=== PATIENT | male | born 1940 ===

== ENCOUNTER 2016-08-26 19:28 | Emergency (ER) | payer OTHER ==
[2016-08-26 19:28] VITALS: BMI 28.7
--- NOTE | 2016-08-26 20:26 | C.PDOC ---
History Of Present Illness 76 y/o male presents to the ED with complains of urinary retention for the past 10 hours. Pt had chronic indwelling partida catheter removed this morning by Dr Denny Silver. Pt has not urinated since, dribbled small quantity in ED. Denies fever, chills, abdominal pain or any other complaints. Time Seen by Provider: 08/26/16 19:43 Chief Complaint (Nursing): Male Genitourinary History Per: Patient History/Exam Limitations: no limitations Onset/Duration Of Symptoms: Hrs Current Symptoms Are (Timing): Still Present Severity: Moderate Associated Symptoms: Urinary Symptoms. denies: Fever, Chills, Nausea, Vomiting Alleviating Factors: None Recent travel outside of the [place]: No Past Medical History Reviewed: Historical Data, Nursing Documentation, Vital Signs Vital Signs: Last Vital Signs Temp 97.7 F 08/26/16 19:34 Pulse 77 08/26/16 19:34 Resp 14 08/26/16 19:34 BP 170/79 H 08/26/16 19:34 Pulse Ox 99 08/26/16 20:29 - Medical History PMH: Benign Prostatic Hyperplasia, CAD, Diabetes, Gall Bladder Disease, HTN, Hypercholesterolemia Surgical History: Cholecystectomy, Coronary Stent - [facility] Procedures INSERT INDWELLING CATH (06/23/14) REPLACE INDWELLING CATH (08/29/14) Family History: States: Unknown Family Hx - Social History Hx Tobacco Use: No Hx Alcohol Use: No Hx Substance Use: No - Immunization History Hx Tetanus Toxoid Vaccination: No Hx Influenza Vaccination: Yes Hx Pneumococcal Vaccination: Yes Review Of Systems Except As Marked, All Systems Reviewed And Found Negative. Constitutional: Negative for: Fever, Chills Gastrointestinal: Negative for: Nausea, Vomiting, Abdominal Pain Genitourinary: Positive for: Other (urinary retention) Physical Exam - Physical Exam Appears: Non-toxic, No Acute Distress Skin: Warm, Dry, No Rash Head: Atraumatic, Normacephalic Chest: Symmetrical Cardiovascular: Rhythm Regular, No Murmur Respiratory: Normal Breath Sounds, No Rales, No Rhonchi, No Wheezing Gastrointestinal/Abdominal: Soft, Tenderness (significant suprapubic tenderness and distention), Distention, No Guarding, No Rebound Extremity: Bilateral: Atraumatic Neurological/Psych: Oriented x3, Normal Speech ED Course And Treatment O2 Sat by Pulse Oximetry: 99 (room air) Pulse Ox Interpretation: Normal Progress Note: Bladder US scan- 600cc. 2000 paged Denny Silver Reevaluation Time: 20:52 Reassessment Condition: Improved - Physician Consult Information Outcome Of Conversation: 2044: d/w Dr. Yuki Smart- ok to replace partida and leg bag and opt f/u. Medical Decision Making Medical Decision Making: recurrent urinary retention after failed void trail- partida removed this AM by Dr. Yuki Smart. Disposition Doctor Will See Patient In The: Office Counseled Patient/Family Regarding: Studies Performed, Diagnosis - Disposition Disposition: HOME/ ROUTINE Disposition Time: 20:54 Condition: GOOD - Clinical Impression Clinical Impression: Acute retention of urine - Scribe Statement The provider has reviewed the documentation as recorded by the Willy Jean-Baptiste Provider Attestation: All medical record entries made by the Feltonibsandrita were at my direction and personally dictated by me. I have reviewed the chart and agree that the record accurately reflects my personal performance of the history, physical exam, medical decision making, and the department course for this patient. I have also personally directed, reviewed, and agree with the discharge instructions and disposition.
[2016-08-26 21:10] VITALS: BP 158/70; PULSE 60; RESP 16; TEMP 98.3; O2SAT 97
== END 2016-08-26 21:26 | disposition home or self-care (01) ==
LOC: C.ER 19:28
DX: N40.1 Benign prostatic hyperplasia with lower urinary tract symptoms (principal); R33.8 Other retention of urine

== ENCOUNTER 2018-07-06 21:49 | Emergency (ER) | payer OTHER ==
[2018-07-06 21:50] VITALS: BMI 31.6
[2018-07-06 21:57] VITALS: O2SAT 98
--- NOTE | 2018-07-06 23:05 | C.PDOC ---
History Of Present Illness 78 year old male presents to the ED for evaluation of his partida. Patient reports due to an enlarged prostates he had a partida placed which stopped draining today. Patient states similar episodes in the past that resolved after the partida was changed. Patient also c/o lower abdominal pressure. Patient denies fever, chills, nausea, vomit, diarrhea, back pain. Time Seen by Provider: 07/06/18 22:04 Chief Complaint (Nursing): Male Genitourinary History Per: Patient History/Exam Limitations: no limitations Onset/Duration Of Symptoms: Days Current Symptoms Are (Timing): Still Present Quality Of Discomfort: Pressure Associated Symptoms: Urinary Symptoms. denies: Nausea, Vomiting, Diarrhea Recent travel outside of the [place]: No Additional History Per: Patient Past Medical History Reviewed: Historical Data, Nursing Documentation, Vital Signs Vital Signs: Last Vital Signs Temp 98.1 F 07/06/18 21:53 Pulse 109 H 07/06/18 21:53 Resp 20 07/06/18 21:53 BP 188/97 H 07/06/18 21:53 Pulse Ox 98 07/06/18 21:53 - Medical History PMH: Benign Prostatic Hyperplasia (partida cath), CAD, Diabetes, Gall Bladder Disease, HTN, Hypercholesterolemia Surgical History: Cholecystectomy, Coronary Stent - [facility] Procedures INSERT INDWELLING CATH (06/23/14) REPLACE INDWELLING CATH (08/29/14) Family History: States: Unknown Family Hx - Social History Hx Tobacco Use: No Hx Alcohol Use: No Hx Substance Use: No - Immunization History Hx Tetanus Toxoid Vaccination: Yes Hx Influenza Vaccination: Yes Hx Pneumococcal Vaccination: Yes Review Of Systems Except As Marked, All Systems Reviewed And Found Negative. Gastrointestinal: Positive for: Abdominal Pain Genitourinary: Positive for: Other (Urinary retention) Physical Exam - Physical Exam Additional Physical Exam Comments: Constitutional: No acute distress. Head: Normocephalic. Atraumatic. Eyes: PERRL. ENT: Moist mucous membranes. Neck: Supple. Cardiovascular: Regular rate. Radial pulse 2+ bilaterally. Tachycardic Chest: No tenderness. Respiratory: Clear to auscultation bilaterally. GI: Soft. Bladder firm. Nondistended. : Partida in place Back: No CVA tenderness. Musculoskeletal: No tenderness or swelling of extremities. Skin: No rash. Neurologic: Alert, no focal deficit. ED Course And Treatment - Laboratory Results Result Diagrams: 07/06/18 23:21 07/06/18 23:21 O2 Sat by Pulse Oximetry: 98 (ON RA) Pulse Ox Interpretation: Normal Medical Decision Making Medical Decision Making: Plan: * Labs * UA * urine culture Partida changed, immediate relief. No evidence of ELBA. Disposition - Disposition Referrals: Mehul Smart MD [Staff Provider] - Disposition: HOME/ ROUTINE Disposition Time: 00:22 Condition: GOOD Prescriptions: levoFLOXacin [Levaquin] 1 tab PO DAILY #10 tab Instructions: How to Care for Your Partida Catheter, Male Forms: [employer] ([employer]) - Clinical Impression Clinical Impression: Partida catheter problem - Scribe Statement The provider has reviewed the documentation as recorded by the Scribe Cristi Cedillo All medical record entries made by the Scribe were at my direction and perso moe dictated by me. I have reviewed the chart and agree that the record accurately reflects my personal performance of the history, physical exam, medical decision making, and the department course for this patient. I have also personally directed, reviewed, and agree with the discharge instructions and disposition.
[2018-07-06 23:24] LABS: BASO # 0.1 K/uL (0.0-0.2); BASO % 1.2 % (0.0-2.0); EOS # 0.2 K/uL (0.0-0.7); EOS % 3.1 % (0.0-4.0); HEMOGLOBIN 13.7 g/dL (12.0-18.0); LYMPH # 1.4 K/uL (1.0-4.3); LYMPH % 18.4 % (20.0-40.0); MEAN CELL VOLUME 85.4 fL (80.0-94.0); MEAN CORPUSCULAR HEMOGLOBIN 28.7 pg (27.0-31.0); MEAN CORPUSCULAR HGB CONC 33.6 g/dL (33.0-37.0); MONO # 0.7 K/uL (0.0-0.8); MONO % 8.7 % (0.0-10.0); NEUT # 5.3 K/uL (1.8-7.0); NEUT % 68.6 % (50.0-75.0); RBC 4.78 Mil/uL (4.40-5.90); RED CELL DISTRIBUTION WIDTH 15.2 % (11.5-14.5); WHITE BLOOD COUNT 7.8 K/uL (4.8-10.8)
[2018-07-06 23:29] LABS: URINE BACTERIA RARE (<OCC); URINE BILIRUBIN NEGATIVE (NEGATIVE); URINE BLOOD 2+ (NEGATIVE); URINE CLARITY Hazy (Clear); URINE COLOR Yellow (YELLOW); URINE GLUCOSE (UA) 3+ mg/dL (Normal); URINE LEUKOCYTE ESTERASE 3+ Leu/uL (Negative); URINE PROTEIN 2+ mg/dL (NEGATIVE); URINE UROBILINOGEN NORMAL mg/dL (0.2-1.0); WBC CLUMPS MOD /hpf
[2018-07-06 23:36] LABS: ALB/GLOB RATIO 1.4 (1.0-2.1); ALBUMIN 4.4 g/dL (3.5-5.0); ALT/SGPT 33 U/L (21-72); AST/SGOT 39 U/L (17-59); BLOOD UREA NITROGEN 18 mg/dL (9-20); CALCIUM 9.6 mg/dl (8.6-10.4); GFR NON-AFRICAN AMERICAN 59
[2018-07-07 01:20] VITALS: BP 147/82; PULSE 88; RESP 18; TEMP 98.3
== END 2018-07-07 00:30 | disposition home or self-care (01) ==
LOC: C.ER 21:49
DX: T83.098A Other mechanical complication of other urinary catheter, initial encounter (principal); Y84.8 Other medical procedures as the cause of abnormal reaction of the patient, or of later complication, without mention of misadventure at the time of the procedure; Y92.89 Other specified places as the place of occurrence of the external cause